=== PATIENT | female | born 1965 | race Caucasian/White ===

== ENCOUNTER → 2016-04-14 | Day surgery (SDC) | payer OTHER ==
[~2016-04-14] MED LIST: IOPAMIDOL (ISOVUE-M 300) 15 ML VIAL IV ONE
--- NOTE | 2016-04-14 18:20 | IR ---
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 She underwent epidural blood patch at [facility] on November 24, 2015. This resulted in 3 days of clinical improvement, followed by recurrenc e of symptoms. She is referred by Dr. Rolo Cedeno for epidural blood patch. Consent: Risks and benefits of the procedure were discussed in detail. Informed consent was obtained. We discussed possible utility of injections at different levels. The patient favors a thoracic level . She accepted risks of accidental dural puncture, internal bleeding, infection, and worsening headac he. Technique: Intravenous line was started in the arm and used to collect blood that was subsequently in jected in the epidural space. With the patient prone, the back was prepped and draped in sterile fash ion. 1% Xylocaine was used for local anesthetic. Using biplane fluoroscopic guidance, an 18-gauge Tuo hy needle was inserted into the back of the spinal canal at the level of T11-T12 interlaminar space. 1.5 mL of Isovue-M 300 were injected and biplane spot images were obtained. The needle was removed. L ocal anesthetic was given at midthoracic level, and the Tuohy needle was inserted into the back of th e spinal canal via the T7-T8 interlaminar space. Epidural position was confirmed with 1.5 mL of Isovu e-M 300, and biplane spot images were taken. 30 mL of venous blood were slowly injected into the need le. The needle was removed and the patient was taken to an observation room in flat supine position, in stable condition. She tolerated the procedure well. Fluoroscopy time: 1.0 minute AP, 0.4 minutes lateral. Estimated exposure in mGy: 23.0. Findings: Spot images at first needle position demonstrate mixture of epidural and subarachnoid contr ast, unsuitable for blood patch. The second needle position results in epidural contrast from T6 through T8, excellent position for bl ood patch. Impression: 1. Accidental dural puncture at T11-T12. 2. Subsequent thoracic epidural blood patch at T7-T8 using 30 mL. - - - - - - - - - - - - - - - - - - - - - - - - - - - - - (PQRS measures: Current medications were listed in the medical record, including all known prescripti ons, [id number] medications, herbal medications, and nutritional supplements. Tobacco use: None . Prophylactic antibiotic:Unnecessary. VTE prophylaxis:Unnecessary.)
== END | disposition home or self-care (01) ==
LOC: FIMAGING 14:48
PROVIDERS: ATTEND Neurological Surgery
PROC: 3E0S3GC Introduction of Other Therapeutic Substance into Epidural Space, Percutaneous Approach (ICD-10-PCS; principal; 2016-04-14)
DX: G96.11 Dural tear (principal); G93.5 Compression of brain; I95.9 Hypotension, unspecified; Q75.8 Other specified congenital malformations of skull and face bones; Y84.8 Other medical procedures as the cause of abnormal reaction of the patient, or of later complication, without mention of misadventure at the time of the procedure
CPT/HCPCS: Q9967

== ENCOUNTER 2016-04-21 13:19 | Day surgery (SDC) | payer OTHER ==
[2016-04-21] MEDS ORDERED: IOPAMIDOL (ISOVUE-M 300) 15 ML VIAL IV ONE (14:48)
[2016-04-21] MEDS ORDERED: LIDOCAINE 1% 30 ML SDV ONE (14:48)
--- NOTE | 2016-04-21 22:55 | IR ---
Blood Patch Indication: Intracranial hypotension. The patient has seen a specialist in [place], who says veronika t multiple blood patches could potentially be needed. She has had two so far, one done in [place] with a total of 30 mL of blood delivered into two separate areas in the thoracolumbar spine, and one done by Dr. Cheek in the mid thoracic spine, delivering additional 30 mL of blood. There was accid ental puncture of the dura at T11-T12. The patient states that since that, she thinks her headaches have gotten worse, and has specifically asked for her blood patch to be performed at that dural punct ure level today. Informed Consent: Obtained from the patient. Risks and benefits were discussed. Cross Cutting Measure: Patient's current list of medications including all known prescriptions, over -the-counters, herbals, and vitamin/mineral/dietary supplements are reviewed. Medications' name, dos age, frequency, and route of administration are confirmed. Patient is a non-smoker. Prophylactic Antibiotic: Cefazolin was not ordered and administered for antimicrobial prophylaxis be cause it was not medically necessary. VTE Prophylaxis: There is not an order for VTE prophylaxis to be given within 24 hours of the proced ure end time. VTE prophylaxis was not given because it was not medically necessary. Technique: Patient is placed in prone position. A "timeout" procedure was performed to identify the correct patient and the correct procedure. 1% Xylocaine was used for local anesthetic. All element s of maximal sterile barrier technique, including cap, mask, sterile gown, sterile gloves, large ster ile sheet, hand hygiene, and 2% chlorhexidine for cutaneous antisepsis, followed. T11-T12 epidural space was encased via left interlaminar approach using 22-gauge spinal needle. Cont rast injection confirms satisfactory placement of the needle in the epidural space. 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 Once adequate epidural access was confirmed by fluoroscopy, about 25 mL of the patient's blood was de livered into the epidural space. The patient tolerated this procedure well. Medication: Local anesthetics only. Fluoroscopy: 4.6 minutes, 9 images. Impression: 1. Epidural blood patch performed with 25 mL of the patient's blood at T11-T12, correlating to the p revious accidental dural puncture site. The patient is hoping that this would at least return the he adache back to baseline. 2. If the patient needs another blood patch, I would suggest going to the lumbar spine next time.
== END 2016-04-21 15:58 | disposition home or self-care (01) ==
LOC: FIMAGING 13:19
PROVIDERS: ATTEND Neurological Surgery
PROC: 3E0S3GC Introduction of Other Therapeutic Substance into Epidural Space, Percutaneous Approach (ICD-10-PCS; principal; 2016-04-21)
DX: G97.2 Intracranial hypotension following ventricular shunting (principal)
CPT/HCPCS: Q9967

== ENCOUNTER 2016-05-04 12:18 | Day surgery (SDC) | payer OTHER ==
[2016-05-04] MEDS ORDERED: IOPAMIDOL (ISOVUE-M 300) 15 ML VIAL IV ONE (13:50)
[2016-05-04] MEDS ORDERED: IOPAMIDOL (ISOVUE-300) 100 ML BTL IV ONE (13:50)
== END 2016-05-04 15:15 | disposition home or self-care (01) ==
LOC: FIMAGING 12:18
PROVIDERS: ATTEND Radiology Diagnostic Radiology
PROC: 3E0S3GC Introduction of Other Therapeutic Substance into Epidural Space, Percutaneous Approach (ICD-10-PCS; principal; 2016-05-04)
DX: G93.2 Benign intracranial hypertension (principal)
CPT/HCPCS: Q9967

== ENCOUNTER → 2016-05-23 | Day surgery (SDC) | payer OTHER | END | disposition home or self-care (01) | LOC: FIMAGING 12:58 | PROVIDERS: ATTEND Radiology Diagnostic Radiology | PROC: 3E0S3GC Introduction of Other Therapeutic Substance into Epidural Space, Percutaneous Approach (ICD-10-PCS; principal; 2016-05-23) | DX: R51 Headache (principal); I95.9 Hypotension, unspecified | CPT/HCPCS: Q9967 ==

== ENCOUNTER 2016-06-20 10:59 | Day surgery (SDC) | payer OTHER | END 2016-06-20 13:18 | disposition home or self-care (01) | LOC: FIMAGING 10:59 | PROVIDERS: ATTEND Radiology Diagnostic Radiology | PROC: 3E0S3GC Introduction of Other Therapeutic Substance into Epidural Space, Percutaneous Approach (ICD-10-PCS; principal; 2016-06-20) | DX: G96.8 Other specified disorders of central nervous system (principal); I95.0 Idiopathic hypotension; G44.89 Other headache syndrome ==